=== PATIENT | male | born 1955 | race African-American/Black ===

== ENCOUNTER 2021-03-23 15:21 | Emergency (ER) | payer OTHER ==
[~2021-03-23] VITALS: Ht 195.6 cm; Wt 88.0 kg
[2021-03-23 15:23] VITALS: BP 134/83
[2021-03-23] MEDS ORDERED: BENZ-16 MT (19:58)
== END 2021-03-23 20:09 | disposition home or self-care (01) ==
LOC: ER 15:21
DX: R05.9 Cough, unspecified (principal); Z20.822 Contact with and (suspected) exposure to COVID-19; B34.9 Viral infection, unspecified; I10 Essential (primary) hypertension
CPT/HCPCS: 71045; 93005; 99285; C9803; U0003; U0005